=== PATIENT | male | born 1965 | race Caucasian/White ===

== ENCOUNTER → 2020-09-10 | Outpatient (CLI) | payer MEDICARE ==
[~2020-09-10] MED LIST: HYDROCODONE BIT1 T11 PO; NAPROSYN500 MG PO; TRAMADOL HCL50 MG PO; TRIMOX500 MG PO
== END | disposition home or self-care (01) ==
LOC: COVID19 12:29
PROVIDERS: ATTEND Surgery
DX: Z01.812 Encounter for preprocedural laboratory examination (principal); K43.2 Incisional hernia without obstruction or gangrene; Z20.822 Contact with and (suspected) exposure to COVID-19

== ENCOUNTER → 2020-09-14 | Day surgery (SDC) | payer MEDICARE ==
[2020-09-10 13:05] VITALS: BP 163/75
[~2020-09-14] VITALS: Ht 170.1 cm; Wt 81.6 kg
[~2020-09-14] MED LIST changes: +COLACE100 MG PO; +PERCOCET 5-3251 EACH PO; +ZOFRAN4 MG PO
[2020-09-14 09:14] VITALS: BP 169/89
[2020-09-14 13:31] VITALS: BP 162/98
[2020-09-14 13:46] VITALS: BP 166/80
[2020-09-14 14:01] VITALS: BP 155/78
[2020-09-14 14:16] VITALS: BP 151/73
[2020-09-14 14:31] VITALS: BP 151/86
== END | disposition home or self-care (01) ==
LOC: SDC 09-10 12:30
PROVIDERS: ATTEND Surgery
DX: K43.6 Other and unspecified ventral hernia with obstruction, without gangrene (principal); K21.9 Gastro-esophageal reflux disease without esophagitis; F17.210 Nicotine dependence, cigarettes, uncomplicated; Z89.211 Acquired absence of right upper limb below elbow; Z79.899 Other long term (current) drug therapy